=== PATIENT | male | born 1990 | race Caucasian/White ===

== ENCOUNTER 2023-02-13 09:10 | Outpatient (CLI) | payer BC ==
[2023-02-13] MEDS ORDERED: Iopamidol 370 76% 100 ML VIAL ONE (12:58)
== END 2023-02-13 09:11 | disposition home or self-care (01) ==
LOC: CT 09:10
PROVIDERS: ATTEND Nurse Practitioner Family
DX: R10.30 Lower abdominal pain, unspecified (principal)
CPT/HCPCS: 74170; Q9967